=== PATIENT | female | born 1945 | race Caucasian/White ===

== ENCOUNTER 2017-05-10 16:30 | Emergency (ER) | payer OTHER ==
[~2017-05-10] VITALS: Ht 170.2 cm; Wt 55.8 kg
[~2017-05-10 16:30] MED LIST: ALPRAZOLAM 0.0.25 M1 PO; AUGMENTIN 875875 MG PO; CIPRO500 MG PO; FLAGYL500 MG PO; HYDROCODONE-AP1 EAC6 PO; LAMOTRIGINE100 MG PO; NYSTATIN-TRIAMC15 GM; PAROXETINE HCL40 MG PO; PHENERGAN 25 MG25 M1 PO; PREMARIN VAGI42.5 G1 VAG; REMERON 30 MG T30 M1 PO; SYNTHROID75 MCG PO; TYLENOL325 MG PO; VENLAFAXINE HC150 M1 PO
[2017-05-10 17:03] LABS: HEMATOCRIT 42.8 % (37.0-47.0); HEMOGLOBIN 14.1 gm/dL (12.0-15.0); MCH 29.1 pg (26.0-34.0); MCHC 32.9 g/dL (28.0-37.0); MCV 88.5 fL (80.0-100.0); PLATELET COUNT 225 thou/uL (150-400); RBC 4.84 mil/uL (4.20-5.00); RDW 14.4 % (10.5-14.5); WBC 13.4 thou/uL (4.0-11.0)
[2017-05-10 17:05] LABS: MANUAL DIFF YES
[2017-05-10] MEDS ORDERED: FLUOXETINE HCL40 MG PO (17:14)
[2017-05-10] MEDS ORDERED: SEROQUEL 50 MG50 MG PO (17:14)
[2017-05-10 17:24] LABS: ABSOLUTE NEUTROPHILS 11.8 thou/uL (1.4-8.2); PLATELET ESTIMATE NORMAL; TOTAL CELL COUNT 100
[2017-05-10 17:53] LABS: ANION GAP 12 mmol/L (7-16); BUN 15 mg/dL (7-18); CALCIUM 9.6 mg/dL (8.5-10.1); CHLORIDE 103 mmol/L (98-107); CO2 25 mmol/L (21-32); CREATININE 1.2 mg/dL (0.6-1.0); GLUCOSE 118 mg/dL (74-106); POTASSIUM 3.9 mmol/L (3.5-5.1); SODIUM 140 mmol/L (136-145)
[2017-05-10 17:59] LABS: ALBUMIN 3.9 g/dL (3.4-5.0); ALKALINE PHOSPHATASE 101 U/L (46-116); DIRECT BILIRUBIN < 0.1 mg/dL (<0.1-0.3); SGOT 26 U/L (15-37); SGPT 23 U/L (30-65); TOTAL BILIRUBIN 0.5 mg/dL (<0.1-1.0); TOTAL PROTEIN 7.7 g/dL (6.4-8.2)
[2017-05-10 18:51] LABS: URINE BILIRUBIN NEGATIVE (Negative); URINE BLOOD NEGATIVE (Negative); URINE COLOR YELLOW; URINE GLUCOSE-RANDOM* NEGATIVE (Negative); URINE KETONES NEGATIVE (Negative); URINE NITRITE NEGATIVE (Negative); URINE PROTEIN (DIPSTICK) 1+ (Negative); URINE UROBILINOGEN 0.2 E.U./dl (0.2-1.0)
[2017-05-10 18:59] LABS: BACTERIA 1-9 Few /HPF (None Seen); CASTS None Seen /LPF (None Seen); CRYSTALS None Seen /LPF (None Seen); SQUAMOUS 0-3 Few /LPF (0-3); URINE RBC 0-2 Rare /HPF (0-2); URINE WBC 0-5 Rare /HPF (0-5)
[2017-05-10] MEDS ORDERED: CITRATE OF MAG296 ML PO (19:35)
== END 2017-05-10 19:55 | disposition home or self-care (01) ==
LOC: ER 16:30
PROVIDERS: Emergency Medicine
DX: K59.00 Constipation, unspecified (principal); F32.9 Major depressive disorder, single episode, unspecified; F41.9 Anxiety disorder, unspecified; E03.9 Hypothyroidism, unspecified; Z98.890 Other specified postprocedural states; Z88.2 Allergy status to sulfonamides

== ENCOUNTER 2019-05-10 14:31 | Inpatient (IN) | payer OTHER ==
[~2019-05-10] VITALS: Ht 170.2 cm; Wt 66.5 kg
--- NOTE | ~2019-05-10 | HC ---
[facility] [address] CONSULTATION Name: DION LINN Room #: 429-P ADM IN M.R.#: [id number] Admission: 05/10/19 Attend Phys: Christo Alonzo MD Discharge: Date of : 49 Report #: [id number] THIS REPORT FOR: //name// CC: Christo Graydixie Simeon DATE OF SERVICE: 05/11/2019 REASON FOR CONSULTATION: Right calcaneus fracture. HISTORY OF PRESENT ILLNESS: The patient is a 73-year-old female who was walking and found a trash bag in a tree. She got a ladder to try to get it out of the tree and she fell approximately 9 feet. She complained of right ankle pain and low back pain. She denied loss of consciousness. Denies any other extremity injuries. REVIEW OF SYSTEMS: MUSCULOSKELETAL: See HPI. NEUROLOGIC: Denies numbness or tingling in her extremities. PAST MEDICAL HISTORY: Significant for hypothyroidism and depression. PAST SURGICAL HISTORY: Tonsillectomy, tubal ligation, sigmoid abscess drainage. REPORTED HOME MEDICATIONS: Include quetiapine, fluoxetine and levothyroxine. ALLERGIES: INCLUDE SULFA. SOCIAL HISTORY: She lives at home with her , does not use any ambulatory aids. She denies smoking or drinking alcohol. LABORATORY DATA: Done on 05/11/2019 show white blood cell count 5.5, hemoglobin 11.6, hematocrit 34.2, platelet count 154. Chemistry is grossly normal. PHYSICAL EXAMINATION: GENERAL: The patient is alert and oriented. She interacts appropriately. She is a well-developed, well-nourished female in no acute distress with normal affect. She converses well. VITAL SIGNS: Most recent vital signs show temperature of 36.9 degrees centigrade, heart rate is 70, respiratory rate 18, blood pressure 132/64, pulse oximetry 94% on room air. EXTREMITIES: Examination of her bilateral upper extremities shows grossly normal sensory and motor function. She moves the upper extremities without difficulty. Skin is clean, dry and intact. Left lower extremity is grossly normal with grossly normal motor and sensory function. Skin is clean, dry and intact. Right lower extremity, she has been placed into a posterior slab [address] [address] CONSULTATION Name: DION LINN Room #: 429-P ADM IN M.R.#: [id number] Admission: 05/10/19 Attend Phys: Christo Alonzo MD Discharge: Date of : 49 Report #: [id number] splint. She has normal sensation to light touch to her toes. She wiggles her toes without difficulty. The toes were pink with brisk capillary refill. There is no evidence of compartment syndrome. All of her compartments in her right lower extremity are soft. There is no pain with range of motion of her right hip or knee. There is no tenderness to palpation to the patient's right thigh, knee, or leg. RADIOGRAPHS: Three views of the right ankle show what appears to be an extraarticular calcaneus fracture. CT scan is pending. IMPRESSION AND PLAN: Right calcaneus fracture in a high functioning 73-year-old female. I recommend ice and elevation. She is to be nonweightbearing on this side and I ordered a CT scan. If she needs surgical treatment, this could be done on an outpatient basis after the swelling has resolved. She should see my partner Dr. Julio Strickland at [facility] for this. This patient also has an L1 fracture due to a fairly significant traumatic event. I do not treat these and I discussed this with the Emergency Department last night. I have ordered a CT scan at the same time as her ankle for efficiency purposes and I would defer to Neurosurgery for evaluation and treatment of her lumbar spine. Questions were encouraged and answered to the best of my ability. I have recommended ice and elevation to the patient. I recommended maintaining upper extremity strength in order to allow her to use a walker better while the fracture heals or after surgical treatment. I encourage deep breathing to avoid pneumonia or other potential complications. By: [id number] Erinn Block MD /rambo
[~2019-05-10 14:31] MED LIST changes: +CITRATE OF MAG296 ML PO; +FLUOXETINE HCL40 MG PO; +SEROQUEL 50 MG50 MG PO
[2019-05-10 14:37] VITALS: BP 118/63
--- NOTE | 2019-05-10 14:41 | NUR ---
LEVEL 2 TRAUMA ACTIVATED AT THIS TIME
[2019-05-10 18:06] VITALS: BP 127/67
[2019-05-10 18:34] VITALS: BP 127/67
[2019-05-10 19:21] VITALS: BP 128/72
--- NOTE | 2019-05-10 19:26 | NUR ---
PT ARRIVED TO ROOM 429 FROM ED VIA CART AT 18:45. C/O OF PAIN. RIGHT ANKLE SPLIT IN PLACE. SPOKE WITH DR. CASTRO, NO PLAN FOR SURGERY AT THIS TIME. WILL NEED TO ICE AND ELEVATE RIGHT ANKLE. ADMISSION TO BE COMPLETED BY NIGHT RN. END OF SHIFT.
[2019-05-11 05:42] VITALS: BP 141/71
[2019-05-11 06:08] LABS: ABSOLUTE NEUTROPHILS 4.1 thou/uL (1.4-8.2); BASOPHILS 0.4 % (0.0-2.0); EOSINOPHILS 1.1 % (0.0-3.0); HEMATOCRIT 34.2 % (37.0-47.0); HEMOGLOBIN 11.6 gm/dL (12.0-15.0); LYMPHOCYTES 15.1 % (24.0-44.0); MCH 30.1 pg (26.0-34.0); MCHC 33.9 g/dL (28.0-37.0); MCV 88.8 fL (80.0-100.0); MONOCYTES 8.9 % (1.0-8.0); PLATELET COUNT 154 thou/uL (150-400); POLYS 74.5 % (36.0-66.0); RBC 3.85 mil/uL (4.20-5.00); RDW 13.7 % (10.5-14.5); WBC 5.5 thou/uL (4.0-11.0)
[2019-05-11 06:17] LABS: CALCIUM 8.6 mg/dL (8.5-10.1); CREATININE 0.9 mg/dL (0.6-1.0); POTASSIUM 3.6 mmol/L (3.5-5.1)
--- NOTE | 2019-05-11 06:50 | NUR ---
NEW ADMIT CAME UP THE UNIT AROUND 1814. C/O PAIN IN LOWER BACK AND R ANKLE AND WAS MEDICATED APPROPRAITELY. PT USES THE BSC WITH 1ASSIST AND WALKER. A&OX4. FALLS PREC IN PLACE. CALL [facility] WITHINN REACH
[2019-05-11 08:58] VITALS: BP 132/64
--- NOTE | 2019-05-11 16:12 | NUR ---
ASSESMENT COMPLETED. VSS. A/O. PAIN MANAGED BY MEDS ORDERED. NO NOTED SOA. NO NV. PT RESTING IN BED APPEARS COMFORTABLE. PT MAINTAINS NWB ON RIGHT FOOT. NO CONCERSN VOICED AT THIS TIME. WILL CONT. TO MONITOR.
[2019-05-11 18:29] VITALS: BP 126/59
[2019-05-11 20:15] VITALS: BP 136/64; BP 178/76
[2019-05-11 23:21] VITALS: BP 131/69
[2019-05-12 04:45] VITALS: BP 134/88
--- NOTE | 2019-05-12 05:14 | NUR ---
ASSUMED CARE OF PT @1900. PT A&O BUT SOMETIMES CONFUSED. PT C/O OF PAIN IN HIP AND R ANKLE AND WAS MEDICATED. ASSESSMENT COMPLETED. FALL REC. IN PLACE. CALL [facility] WITHIN REACH. CONTINEOUS EDUCATION WAS DONE ON SAFETY AND HOW TO CALL FOR HELP
[2019-05-12 05:37] LABS: ALBUMIN 2.9 g/dL (3.4-5.0); CALCIUM 8.7 mg/dL (8.5-10.1); CREATININE 0.8 mg/dL (0.6-1.0); PHOSPHORUS 2.4 mg/dL (2.5-4.9); TOTAL BILIRUBIN 0.7 mg/dL (<0.1-1.0); TOTAL PROTEIN 6.5 g/dL (6.4-8.2)
[2019-05-12 07:29] VITALS: BP 149/76
--- NOTE | 2019-05-12 11:18 | NUR ---
ASSESMENT COMPLETED. VSS. OX1. PAIN MANAGED BY MEDS ORDERED. NO NOTED SOA. NO NV. PT RESTING IN BED APPEARS COMFORTABLE AT THIS TIME. FAMILY AT BEDSIDE. PT CONFUSED TODAY. REORIENTED. WILL CONT. TO MONITOR.
--- NOTE | 2019-05-12 14:55 | NUR ---
REPORT CALLED IN TO JOSELYN COLLINS AT [facility]. WAITING FOR TRANSPORT. PT TO TRANSFER WITH [facility].
[2019-05-12 16:31] VITALS: BP 145/84
--- NOTE | 2019-05-12 16:35 | NUR ---
PT TRANPORTED VIA AMBULANCE- [facility] TO [facility]. ALL BELONGINGS WITH PT. WITH PT AT TIME OF TRANSPORT.
== END 2019-05-12 16:36 | disposition short-term general hospital (02) | DRG 563 ==
LOC: ER 14:31 → EROBS 16:39 → 4E 18:50
PROVIDERS: Emergency Medicine; Hospitalist; ADMIT Surgery
PROC: 2W3QX1Z Immobilization of Right Lower Leg using Splint (ICD-10-PCS; principal; 2019-05-10)
DX: S92.051A Displaced other extraarticular fracture of right calcaneus, initial encounter for closed fracture (principal); S32.019A Unspecified fracture of first lumbar vertebra, initial encounter for closed fracture; E03.9 Hypothyroidism, unspecified; F32.9 Major depressive disorder, single episode, unspecified; F41.9 Anxiety disorder, unspecified; K57.90 Diverticulosis of intestine, part unspecified, without perforation or abscess without bleeding; W11.XXXA Fall on and from ladder, initial encounter; Z79.899 Other long term (current) drug therapy; Z88.2 Allergy status to sulfonamides; Y93.89 Activity, other specified; Y92.89 Other specified places as the place of occurrence of the external cause; Y99.8 Other external cause status
CPT/HCPCS: 10084